=== PATIENT | female | born 1965 | race Caucasian/White ===

== ENCOUNTER → 2024-06-04 | Outpatient (CLI) | payer BC ==
[2024-06-04 10:03] LABS: INR 0.9 (<1.2); Partial Thromboplastin Time 23.6 sec (22.0-30.0); Prothrombin Time 9.9 sec (10.0-12.5)
[2024-06-04 15:33] LABS: HGB 12.2 g/dL (12.0-15.0); MCH 30.6 pg (27.0-32.0); MCHC 32.1 g/dL (32.0-37.0); MCV 95.2 FL (80.0-97.0); Mean Platelet Volume 11.3 FL (9.5-12.2); NRBC Per 100 WBC 0 X 10*3/uL (0.00-0.01); Platelet Count 242 X 10*3/uL (140-440); RBC 3.99 X 10*6/uL (4.10-5.20); WBC 6.85 X 10*3/uL (4.50-10.00)
[2024-06-04 15:39] LABS: ALT 18 U/L (8-44); AST 20 U/L (13-35); Albumin 4.2 g/dL (3.8-4.9); Albumin/Globulin Ratio 1.45 Ratio (1.60-3.17); Alkaline Phosphatase 100 U/L (41-126); BUN/Creat Ratio 23.29 Ratio (12.00-20.00); Blood Urea Nitrogen 16.3 mg/dL (9.0-27.0); Calcium 9.3 mg/dL (8.7-10.3); Carbon Dioxide 25.1 mmol/L (21.6-31.8); Chloride 107 mmol/L (96-109); Globulin 2.9 g/dL (1.6-3.3); Glucose 107 mg/dL (70-110); Potassium 4.7 mmol/L (3.5-5.5); Sodium 143 mmol/L (135-145); Total Bilirubin <0.2 mg/dL (0.3-1.2); Total Protein 7.1 g/dL (6.2-8.2)
== END | disposition home or self-care (01) ==
LOC: LABWHC1 08:25
PROVIDERS: ATTEND Orthopaedic Surgery
DX: Z01.818 Encounter for other preprocedural examination (principal)
CPT/HCPCS: 36415; 80053; 85027; 85610; 85730; 87070; 93005

== ENCOUNTER 2024-06-21 05:38 | Day surgery (SDC) | payer BC ==
[2024-06-15 16:09] VITALS: BMI 49.6
[~2024-06-21 05:38] MED LIST: TRANEXAMIC 1,000 MG/100ML-NACL 1,000 MG in SALINE 1 100ML.BAG IVPB PRN
[2024-06-21] MEDS: MELOXICAM 7.5 MG TAB PO PRN (06:13)
[2024-06-21] MEDS: ACETAMINOPHEN TAB 500 MG TAB PO PRN (06:13)
[2024-06-21] MEDS: GABAPENTIN 300 MG CAP PO PRN (06:14)
[2024-06-21] MEDS: IV FLUID CONTINUATION 1,000 ML IV ONE (06:14)
[2024-06-21] MEDS: LACTATED RINGERS 1,000 ML IV SCH (06:14)
[2024-06-21] MEDS: LIDOCAINE 1% (10MG/ML) FOR IV START INTRADERMA STA (06:15)
[2024-06-21] MEDS: ONDANSETRON 4 MG/2 ML VIAL IVP ONE (06:15)
[2024-06-21] MEDS: DEXAMETHASONE SOD PHOSPHATE 4 MG/ML 1 ML VIAL IV ONE (06:15)
[2024-06-21] MEDS: MIDAZOLAM 2 MG/2 ML VIAL IV PRN (06:38)
[2024-06-21] MEDS: fentaNYL (PF) 50 MCG/ML 2 ML AMP IVP PRN (06:38)
[2024-06-21] MEDS ORDERED: fentaNYL (PF) 50 MCG/ML 2 ML AMP ONE (06:53)
[2024-06-21] MEDS ORDERED: ROPIVACAINE 5 MG/ML 30 ML VIAL ONE (06:53)
[2024-06-21] MEDS ORDERED: diphenhydrAMINE 50 MG/ML 1 ML VIAL ONE (06:53)
[2024-06-21] MEDS ORDERED: TRANEXAMIC 1,000 MG/100ML-NACL PREMIX BAG ONE (06:53)
[2024-06-21] MEDS ORDERED: MIDAZOLAM 2 MG/2 ML VIAL ONE (06:53)
[2024-06-21] MEDS ORDERED: PROPOFOL 10 MG/ML 20 ML VIAL IV ONE (06:53)
[2024-06-21] MEDS: ceFAZolin 1,000 MG in SODIUM CHLORIDE 0.9% 1,000 ML IRRIGATION ONE (06:58)
[2024-06-21] MEDS: ceFAZolin 3 GM in SODIUM CHLORIDE 0.9% 100 ML IVPB PRN (06:58)
[2024-06-21] MEDS ORDERED: HYDROmorphone 0.5 MG/0.5 ML SYRINGE IVP PRN ×3 (07:00→08:54)
[2024-06-21] MEDS: LACTATED RINGERS 1,000 ML IV ONE (08:05)
--- NOTE | 2024-06-21 08:19 | P.OP ---
Date of Procedure: 06/21/24 Preoperative Diagnosis: Severe arthritis right knee Postoperative Diagnosis: Severe arthritis right knee Procedure(s) Performed: Right total knee arthroplasty Implants: [employer] Journey II CR Oxinium cruciate retaining femoral component size 3, right [employer] Journey nonporous tibial baseplate size 2, right [employer] Journey II, XLPE Deep Dished articular insert, size 13 mm, Size 1-2, right [employer] Jeannette II resurfacing patellar component, oval, 29 mm All components were cemented using Palacos R bone cement The articulation is Oxinium on polyethylene Anesthesia: spinal Surgeon: Jhonny Sanford Global Category Manager #1: Marizol Bobo Estimated Blood Loss (ml): 40 Pathology: none sent Condition: stable Disposition: PACU Indications for Procedure: The patient's knee is end-stage, and conservative management has failed. The operation of knee replacement has been discussed at length in the office, as well as potential risks and complications. These are inclusive of, but not limited to: Infection, bleeding, scarring, discomfort, stiffness, blood vessel and nerve damage, need for further surgery, failure to relieve symptoms, persistence, recurrence, or worsening of problems, loosening, dislocation, wear, blood clot, pulmonary embolism, , gait dysfunction, stiffness, and other risks as discussed in the office. Patient elects to proceed and the consent form has been signed. Operative Findings: The operative findings are consistent with severe arthritis of the right knee Description of Procedure: The patient was seen in the preoperative area, the consent was reviewed and the operative site was marked with a skin marker. The patient verified the procedure and the operative site. An adductor canal pain catheter and an iPACK block were placed by anesthesia in the preoperative area. The patient was then brought to the operating room and positioned on the operating room table in the supine position. Preoperative antibiotics and a gram of tranexamic acid were given intravenously. A spinal anesthetic was administered by the anesthesia department. Care was taken to make sure that all pressure points were adequately padded. A tourniquet was placed on the upper thigh and the lower extremity was prepped with ChloraPrep and draped in usual sterile fashion. A universal time-out was then performed which confirmed the patient's name, surgical site, ALLERGIES, and consent. The lower extremity was then exsanguinated and tourniquet was inflated to 250 mmHg. A standard anterior midline approach to the knee was performed. The skin and subcutaneous tissue were sharply dissected down to the patellar tendon. A medial parapatellar arthrotomy was then performed. The knee was then extended, the patellar was everted, and the knee was flexed. The infra-patellar fat pad was removed in order to enhance exposure. The anterior horns of both menisci were excised, and a release was performed to the posterior medial aspect of the knee. On gross visual inspection, there was complete loss of articular cartilage in the medial and patellofemoral joint spaces. There was also significant cartilage damage in the lateral compartment. There were multiple periarticular osteophytes globally about the knee which were then removed with a Ronguer. The femoral canal was then opened with the 9.5 mm intramedullary drill. The 8 mm intramedullary srini was then inserted into the femoral canal with the distal femoral cutting guide set for 5 of valgus. The distal femoral cutting block was then pinned in place. The intramedullary srini was then removed, and the distal femur was then cut. The cutting block was then removed and the cut was checked for symmetry. The resected bone was then measured to confirm the appropriate distal femoral resection. Next, the sizing guide was then placed and set for 3 external rotation based off of the epicondylar axis and [place]'s line. Pins were then placed and the drill holes, and the femur was sized with the sizing stylus. The pins were then removed, and the sizing guide was then removed. The spikes of the appropriate size femoral block was then placed into the predrilled holes, and malleted into place. Two 45 mm pins were then placed into the fixation holes on the cutting block. An yoel wing was then used to ensure there would be no notching with the anterior cut. The anterior condyles were cut without notching. The anterior chord cut was then performed, followed by the posterior cut, posterior chamfer cut, and the anterior chamfer cut. The collateral ligaments were protected during the entire process. The cutting block was then removed. Any remaining bone and osteophytes were removed from the femur with a Ronguer. Attention was then directed to the tibia. The remaining ACL was removed with a Ronguer, and the tibia was then gently subluxed forward with a large bent knee retractor. Any remaining menisci were excised. The posterior lateral corner was cauterized in order to coagulate the lateral geniculate artery. The extra medullary tibial cutting guide was then placed, set for the appropriate rotation, slope, and depth of resection. The proximal tibia cutting guide was then pinned in place. Proximal tibia was then cut and sized. A curved osteotome was then used to remove any posterior osteophytes from the distal f emur. The femoral trial was placed. A narrow saw blade was then used to remove the anterior intracondylar femoral bone. The CR notch trial was then placed. The tibial trial was placed with the appropriate-sized insert. The knee was able to fully extend and flex to 130 and was stable throughout all range of motion. The knee was then extended and the patella was everted. Patella was then me asured, and then using an osteotomy guide, the patella was cut at the appropriate level. The patellar component was sized. The patellar drill guide was placed and the patella was drilled. The patella trial was then placed. The knee was then taken through range of motion with the patella trial and the patella tracked normally using the no thumbs technique. The patella trial was then removed. The knee was then flexed and lug holes were drilled through the femoral trial and the femoral trial was then removed. The tibial was then re- exposed, and the tibial broach guide was then pinned in place after it was set for the appropriate rotation to allow for the most coverage without overhang. The tibia was then reamed and broached. The femoral canal was plugged with autologous bone. The cut surfaces of bone were then irrigated with pulsatile lavage. The knee was also irrigated with Irrisept solution. The components were then opened, the cement was mixed. Cement was placed on the backside of the femoral, tibial, and patellar components. Cement was then applied to the tibial surface and pressurized into the surface using finger pressurization technique. The tibial component was t hen applied and excess cement was removed after it was impacted securely noted to be flush with the cut surface. In similar fashion, the cement was applied to the cut femoral surface, pressurized and using finger pressurization the component was impacted in place. Excess cement was removed. The polyethylene spacer was then implanted and locked into position. Patellar component was then applied in a similar technique and the patellar clamp was used to hold patella in place while the cement hardened. The knee was held in full extension while the cement hardened. Once the cement had fully hardened, the knee was reinspected. Any other cement extrusion was removed the final range of motion testing showed range of motion from 0-130 with excellent stability, both medial and laterally and appropriate alignment of the leg. Patella tracked normally. After the cemented hardened, the tourniquet was released and hemostasis was obtained. A second gram of transexamic acid was given intravenously. The knee was again irrigated. The knee was again taken through range of motion and found to be stable throughout all range of motion of 0-130, and the patella tracked normally. The fascia was then closed with 0 Vicryl followed by #2 strata fix suture. The subcutaneous tissue was closed with 3-0 Vicryl and 3-0 monocryl. Exofin glue was used for the skin and placed with the knee in flexion. After the glue had dried, and Optafoam silver impregnated dressing was applied. A lightly compressive dressing was applied using web roll and Andrew wrap. Patient was then transferred to the stretcher and taken to recovery room in stable condition. Sponge and needle counts were correct. The cardiology physician assistant LUCIANO Hollis was required due the complexity surgery and the need for a skilled academic assistant. She assisted in positioning, draping, retraction, and closure of the wound.
[2024-06-21] MEDS ORDERED: HYDROmorphone 1 MG/ML 1 ML SYRINGE IVP PRN (08:54)
[2024-06-21] MEDS ORDERED: NA PHOS,M-B/NA PHOS,DI-BA 133 ML ENEMA RECTAL PRN (08:54)
[2024-06-21] MEDS ORDERED: ONDANSETRON 4 MG/2 ML VIAL IVP PRN (08:54)
[2024-06-21] MEDS ORDERED: MAGNESIUM HYDROXIDE 2,400 MG/30 ML CUP PO PRN (08:54)
[2024-06-21] MEDS ORDERED: bisacodyL 10 MG SUPP RECTAL PRN (08:54)
[2024-06-21] MEDS ORDERED: NALOXONE 0.4 MG/ML 1 ML VIAL IV PRN (08:54)
[2024-06-21] MEDS: ROPIVACAINE 1,100 MG, SODIUM CHLORIDE 0.9% 500 ML 330 ML, EMPTY PAIN BALL 1 EACH MISCELLANE PRN (09:11)
--- NOTE | 2024-06-21 09:50 | XR ---
EXAMINATION TYPE: XR knee limited RT DATE OF EXAM: 06/21/2024 9:24 AM COMPARISON: None CLINICAL INDICATION: Female, 59 years old with history of Evaluation for Postop abnormality and align ment; PHH, pain TECHNIQUE: XR knee limited RT 2 views submitted. FINDINGS: Status post total knee arthroplasty changes with hardware in appropriate alignment and in tact. No evidence of fracture. Subcutaneous lucencies and lucencies within the joint consistent with surgical changes. IMPRESSION: Status post total knee arthroplasty changes with hardware intact and appropriate alignment. No fractu res identified. [facility], , 06/21/2024 9:47 AM
[2024-06-21] MEDS: SCOPOLAMINE 1 MG/72 HR PATCH TRANSDERM ONE (12:14)
[2024-06-21] MEDS: SODIUM CHLORIDE 0.9% 1,000 ML IV SCH (12:15)
--- NOTE | 2024-06-21 12:19 | P.CON ---
Consult Note - . Consult date: 06/21/24 Assessment/Plan:: Patient is a 59-year-old female with past medical history of knee osteoarthritis, obesity, hypertension, who failed conservative right knee osteoarthritis treatment and presented for elective right TKA that was performed on 06/21/2024, no postoperative complications reported, patient tolerated procedure well. Patient was seen and examined at bedside after surgery, patient's is at bedside as well. Patient feels generally well with some initiating postop discomfort. She denied chest pain, shortness of breath, palpitations, dizziness, lightheadedness, changes in bowel habits, dysuria. IM service consulted for management of chronic medical condition. Patient's medications were reconciled. Preop lab work from 06/04/2024 reviewed, no leukocytosis, hemoglobin normal, creatinine normal, AST ALT WNL. Vital signs reviewed, patient's is well- controlled, she is on room air, afebrile. Assessment and plan Essential hypertension: Continue home medications Right knee osteoarthritis status post TKA 06/21/2024 -Your postop management and DVT prophylaxis -PT OT -Pain management per Ortho team Obesity, recommend weight loss Pertinent positives and negatives as discussed in HPI, a complete review of systems was performed and all other systems are negative. Vital signs reviewed General: nontoxic, no distress, appears at stated age Derm: warm, dry Head: atraumatic, normocephalic, symmetric Eyes: EOMI, no lid lag, anicteric sclera, pupils equal round reactive to light ENT: Nose and ears atraumatic Neck: No thyromegaly, supple Mouth: no lip lesion, mucus membranes moist Cardiovascular: S1S2 reg, no murmur, no edema Lungs: clear to auscultation bilateral, no rhonchi, no rales, no wheeze, no accessory muscle use Abdominal: soft, nontender to palpation, no guarding, no appreciable organomegaly Ext: no gross muscle atrophy, dressing clean and dry, there is mild bilateral pedal edema Neuro: CN II-XII grossly intact Psych: Alert, oriented, appropriate affect
[2024-06-21] MEDS: HYDROcodone/APAP 7.5-325MG 1 EACH TAB PO PRN ×2 (12:20→19:34)
--- NOTE | 2024-06-21 13:35 | P.ANPRN ---
Procedure Note - Anesthesia - Nerve Block Performed Right Adductor Canal Infusion Time Out Performed: Yes (0638) Date of Procedure: 06/21/24 Procedure Start Time: 06:39 Procedure Stop Time: 06:44 Location of Patient: PreOp Indication: Acute Post-Operative Pain, Requested by Surgeon Specifically requested for management of pain by DrMae: Jhonny Sanford Sedation Type: Sedate with meaningful contact maintained Preparation: Sterile Prep, Sterile Dressing Position: Supine Catheter Depth at Skin (cm): 10 Catheter: Indwelling Needle Types: Pajunk Needle Gauge: 18 Ultrasound used to visualize needle placement: Yes Ultrasound used to observe medication spread: Yes Injectate: 0.5% Ropivacaine (see comment for volume) (15cc+10cc nacl pf) Blood Aspirated: No Pain Paresthesia on Injection Noted: No Resistance on Injection: Normal Image Stored and Saved: Yes Events: Uneventful and Well Tolerated
--- NOTE | 2024-06-21 13:36 | P.ANPRN ---
Procedure Note - Anesthesia - Nerve Block Performed Right iPack Single Time Out Performed: Yes (0638) Date of Procedure: 06/21/24 Procedure Start Time: 06:45 Procedure Stop Time: 06:47 Location of Patient: PreOp Indication: Acute Post-Operative Pain, Requested by Surgeon Specifically requested for management of pain by DrMae: Jhonny Sanford Sedation Type: Sedate with meaningful contact maintained Preparation: Sterile Prep Position: Supine Catheter: None Needle Types: Pajunk Needle Gauge: 21 Ultrasound used to visualize needle placement: Yes Ultrasound used to observe medication spread: Yes Injectate: 0.5% Ropivacaine (see comment for volume) (15cc+10cc nacl pf) Blood Aspirated: No Pain Paresthesia on Injection Noted: No Resistance on Injection: Normal Image Stored and Saved: Yes Events: Uneventful and Well Tolerated
[2024-06-21] MEDS: ceFAZolin 3 GM in SODIUM CHLORIDE 0.9% 100 ML IVPB SCH (16:15)
[2024-06-21] MEDS: SENNOSIDES-DOCUSATE SODIUM 1 EACH TAB PO SCH (19:59)
[2024-06-21] MEDS: ASPIRIN 325 MG TAB PO SCH (19:59)
--- NOTE | 2024-06-22 07:59 | P.PN ---
Progress Note - Text Progress Note Date: 06/22/24 (154) Anesthesiology Postop day 1 status post total knee arthroplasty with adductor canal catheter. Patient doing well. VAS 4 out of 10. Gross strength intact in lower extremity. Afebrile. Denies alterations in sensorium. Catheter site intact. Heart regular rate Lungs nonlabored Abdomen nondistended Assessment: Postop day 1 status post total knee arthroplasty with adductor canal catheter Plan: 1.All questions answered. Maintain catheter 2 more days with patient removal at home. Instructions to be given at discharge. 2.This note was dictated using Unigo software. Please be advised there is a potential for misspellings or errors in global manager.
[2024-06-22] MEDS: MULTIVITAMINS, THERA 1 EACH TAB PO SCH (08:30)
[2024-06-22] MEDS: MAGNESIUM OXIDE 400 MG TAB PO SCH (08:30)
[2024-06-22] MEDS: CHOLECALCIFEROL 125 MCG (5000 IU) TABLET PO SCH (08:31)
[2024-06-22] MEDS: BISOPROLOL-HCTZ 10-6.25 MG 1 EACH TAB PO SCH (08:32)
[2024-06-22] MEDS ORDERED: NON FORMULARY DRUG (Omega-3/Dha/Epa/Fish Oil [Fish Oil 1,000 Mg Softgel] 1 EACH Capsule) PO SCH (09:00)
[2024-06-22 09:08] VITALS: BP 128/72; PULSE 70; RESP 16; TEMP 97.8
[2024-06-22 09:13] LABS: Basophils # (A) 0.02 X 10*3/uL (0.00-0.10); Basophils % (A) 0.2 %; Eosinophils # (A) 0.03 X 10*3/uL (0.04-0.35); Eosinophils % (A) 0.3 %; HCT 33.2 % (37.2-46.3); HGB 10.7 g/dL (12.0-15.0); Lymphocytes # (A) 2.11 X 10*3/uL (0.90-5.00); Lymphocytes % (A) 20.6 %; MCH 30.5 pg (27.0-32.0); MCHC 32.2 g/dL (32.0-37.0); MCV 94.6 FL (80.0-97.0); Mean Platelet Volume 11.1 FL (9.5-12.2); Monocytes # (A) 1.15 X 10*3/uL (0.20-1.00); Monocytes % (A) 11.2 %; NRBC Per 100 WBC 0 X 10*3/uL (0.00-0.01); Neutrophils # (A) 6.92 X 10*3/uL (1.80-7.70); Neutrophils % (A) 67.4 %; Platelet Count 241 X 10*3/uL (140-440); RBC 3.51 X 10*6/uL (4.10-5.20); RDW 15.4 % (11.5-14.5); WBC 10.26 X 10*3/uL (4.50-10.00)
--- NOTE | 2024-06-22 10:45 | P.DS ---
Providers Expected date of discharge: 06/22/24 Attending physician: Jhonny Sanford Consults: 06/21/24 08:54 Consult Physician Routine Consulting Provider: Dori Herrera Consult Reason/Comments: medical management Do you want consulting provider notified?: Yes Primary care physician: Prosper Steinberg - Discharge Diagnosis(es) (1) Osteoarthritis of right knee Current Visit: Yes Status: Acute (2) S/P total knee arthroplasty Current Visit: Yes Status: Acute Hospital Course: This is a 59-year-old female with known history of degenerative arthritis of the right knee. The patient presented for evaluation as an outpatient. After discussion and consideration patient elects to proceed with total knee arthroplasty. The patient is seen preoperatively by Dr. Sanford and medically cleared for surgery by their primary care physician. Patient is admitted to [facility] on 06/21/2024 for total knee arthroplasty. The procedure is performed without complication or sequelae. The patient is doing well postoperatively. Labs and vital signs are stable on day of discharge. On day of discharge patient's knee incision is healing well. There is minimal erythema. There is no drainage noted at this time. There is minimal soft tissue swelling to the knee. Patient has full foot and ankle motion without difficulty or pain. Calf is soft and nontender to palpation. Neurovascular status to the right lower extremity is intact. Patient is discharged home in good condition. Please see med rec for accurate list of home medications. Plan - Discharge Summary Discharge Rx Participant: Yes New Discharge Prescriptions: New HYDROcodone/APAP 7.5-325MG [Ayer 7.5-325] 1 - 2 tab PO Q6H PRN #32 tab PRN Reason: Pain Sennosides [Senokot] 2 tab PO DAILY PRN #60 tablet PRN Reason: Constipation Aspirin 325 mg PO BID #60 tab No Action Cholecalciferol [Vitamin D3 (125 Mcg = 5000 Iu)] 125 mcg PO DAILY Turmeric Root Extract [Turmeric Curcumin] 1,000 mg PO DAILY Magnesium 250 mg PO DAILY Bisoprolol-Hctz 10-6.25 mg [Ziac 10-6.25 MG] 1 tab PO DAILY [place]-3/Dha/Epa/Fish Oil [Fish Oil 1,000 mg Softgel] 1 each PO DAILY Multivit with Calcium,Iron,Min [Women's Multivitamin] 1 each PO DAILY Jazmine 500 mg PO DAILY Cinnamon Bark [Cinnamon] 2,000 mg PO DAILY Discharge Medication List Bisoprolol-Hctz 10-6.25 mg [Ziac 10-6.25 MG] 1 tab PO DAILY 06/15/24 [History] Cholecalciferol [Vitamin D3 (125 Mcg = 5000 Iu)] 125 mcg PO DAILY 06/15/24 [History] Cinnamon Bark [Cinnamon] 2,000 mg PO DAILY 06/15/24 [History] Jazmine 500 mg PO DAILY 06/15/24 [History] Magnesium 250 mg PO DAILY 06/15/24 [History] Multivit with Calcium,Iron,Min [Women's Multivitamin] 1 each PO DAILY 06/15/24 [History] [place]-3/Dha/Epa/Fish Oil [Fish Oil 1,000 mg Softgel] 1 each PO DAILY 06/15/24 [History] Turmeric Root Extract [Turmeric Curcumin] 1,000 mg PO DAILY 06/15/24 [History] Aspirin 325 mg PO BID #60 tab 06/21/24 [Rx] HYDROcodone/APAP 7.5-325MG [Ayer 7.5-325] 1 - 2 tab PO Q6H PRN #32 tab 06/21/24 [Rx] Sennosides [Senokot] 2 tab PO DAILY PRN #60 tablet 06/21/24 [Rx] Follow up Appointment(s)/Referral(s): [facility] [NON-STAFF] - As Needed Jhonny Sanford DO [Doctor of Osteopathic Medicine] - 06/28/24 2:45 pm Activity/Diet/Wound Care/Special Instructions: Weightbearing as tolerated with a walker. CPM 5-6h daily as tolerated. Leave dressing intact. Dressing may be removed by home care nurse or by patient in 7 days. Then change dressing twice daily until follow up. May shower with initial dressing intact and after removal. If dressing become saturated, please remove. Recommend use of compression stockings daily until follow up to help prevent swelling and blood clots. May remove at night before sleeping. Please take aspirin 325mg twice daily for 30 days to prevent blood clots. Please follow up with [facility] and call with any questions or concerns, . Discharge Disposition: HOME WITH HOME HEALTH SERVICES
--- NOTE | 2024-06-22 12:02 | P.PN ---
Subjective Progress Note Date: 06/22/24 Hospital Course: Patient is a 59-year-old female with past medical history of knee osteoarthrit is, obesity, hypertension, who failed conservative right knee osteoarthritis treatment and presented for elective right TKA that was performed on 06/21/2024, no postoperative complications reported, patient tolerated procedure well. Cleared for discharge by PT OT and primary Ortho team, no medications adjustment needed from IM standpoint, patient is medically stable and can follow-up with her PCP after discharge. Subjective: Seen During morning rounds, patient's at bedside, patient sitting comfortably in the recliner, she ambulated well down the hallway with PT OT, did well per p atient and is ready for discharge Pertinent positives and negatives as discussed above, a complete review of systems was performed and all other systems are negative. Vitals Signs Reviewed. Vital signs reviewed General: nontoxic, no distress, appears at stated age Derm: warm, dry Head: atraumatic, normocephalic, symmetric Eyes: EOMI, no lid lag, anicteric sclera, pupils equal round reactive to light ENT: Nose and ears atraumatic Neck: No thyromegaly, supple Mouth: no lip lesion, mucus membranes moist Cardiovascular: S1S2 reg, no murmur, no edema Lungs: clear to auscultation bilateral, no rhonchi, no rales, no wheeze, no accessory muscle use Abdominal: soft, nontender to palpation, no guarding, no appreciable organomegaly Ext: no gross muscle atrophy, dressing clean and dry, there is mild bilateral pedal edema Neuro: CN II-XII grossly intact Psych: Alert, oriented, appropriate affect Data Reviewed Today: Pertinent Labs: Blood work from today showed mild reactive leukocytosis up to 10.26, hemoglobin down to 10.7 compared to end of May where it was 12.2, Assessment and Plan: Essential hypertension: Continue home medications Right knee osteoarthritis status post TKA 06/21/2024 -Your postop management and DVT prophylaxis -PT OT -Pain management per Ortho team -Medically stable for discharge from IM standpoint, no medications adjustment needed Obesity, recommend weight loss Objective - Vital Signs Vital signs: Vital Signs Temp 97.8 F 06/22/24 07:44 Pulse 70 06/22/24 07:44 Resp 16 06/22/24 07:44 BP 128/72 06/22/24 07:44 Pulse Ox 98 12/17/24 07:44 FiO2 Intake & Output 06/21/24 06/22/24 06/22/24 18:59 06:59 18:59 Intake Total 600 Output Total 40 Balance 560 Weight 130.3 kg Intake: IV 600 Output: Estimated Blood Loss 40 Other: Voiding Method Toilet # Voids 1 2 - Labs CBC & Chem 7: 06/22/24 03:05 Labs: Abnormal Lab Results - Last 24 Hours (Table) 06/22/24 Range/Units 03:05 WBC 10.26 H (4.50-10.00) X 10*3/uL RBC 3.51 L (4.10-5.20) X 10*6/uL Hgb 10.7 L (12.0-15.0) g/dL Hct 33.2 L (37.2-46.3) % RDW 15.4 H (11.5-14.5) % Monocytes # 1.15 H (0.20-1.00) X 10*3/uL Eosinophils # 0.03 L (0.04-0.35) X 10*3/uL
== END 2024-06-22 12:45 | disposition home health service (06) ==
LOC: OR 05:38 → 4SSUR 08:45 → OR 06-22 12:45
PROVIDERS: ATTEND Orthopaedic Surgery
DX: M17.11 Unilateral primary osteoarthritis, right knee (principal); M17.12 Unilateral primary osteoarthritis, left knee; I10 Essential (primary) hypertension; Z88.0 Allergy status to penicillin; Z79.899 Other long term (current) drug therapy
CPT/HCPCS: 97161; 64999; 64448; 85025; 73560; 27447; C1713; C1776; C1751; J2250; J1100; J0690 ×2; J2405; J3010; J2795